=== PATIENT | female | born 1935 | race Caucasian/White ===

== ENCOUNTER 2019-09-14 10:34 | Inpatient (IN) | END 2019-09-16 19:00 | disposition home or self-care (01) | DRG 300 | DX: I82.412 Acute embolism and thrombosis of left femoral vein (principal); D68.59 Other primary thrombophilia; K86.2 Cyst of pancreas; E87.6 Hypokalemia; Z87.891 Personal history of nicotine dependence; Z79.899 Other long term (current) drug therapy; Z85.3 Personal history of malignant neoplasm of breast; Z87.19 Personal history of other diseases of the digestive system; K21.9 Gastro-esophageal reflux disease without esophagitis; L98.9 Disorder of the skin and subcutaneous tissue, unspecified; Z86.010 Personal history of colon polyps; I11.9 Hypertensive heart disease without heart failure; E27.8 Other specified disorders of adrenal gland ==